=== PATIENT | male | born 1995 | race Two or more races ===

== ENCOUNTER 2018-01-29 23:45 | Emergency (ER) | payer OTHER ==
[~2018-01-29] VITALS: Ht 180.3 cm; Wt 80.0 kg
[~2018-01-29 23:45] MED LIST: AMOX1TAB64 PO; ONDA4TAB10 PO; OXYC-302 PO; TRAZODONE PO; [UNRECOGNIZED DRUG - OTHER] PO
[2018-01-29 23:57] VITALS: BP 135/58
== END 2018-01-30 02:09 | disposition home or self-care (01) ==
LOC: ED 23:59
DX: M25.552 Pain in left hip (principal); J45.909 Unspecified asthma, uncomplicated; R05 Cough; R09.81 Nasal congestion
CPT/HCPCS: 72170; 99284